=== PATIENT | female | born 1965 | race African-American/Black ===

== ENCOUNTER 2022-04-28 08:19 | Outpatient (CLI) | payer OTHER, SELFPAY ==
--- NOTE | ~2022-04-28 | MR_ITS ---
MRI of the left knee Clinical history: Pain Technique: Coronal proton density and proton density-weighted images, sagittal proton-density and T2 fat-sat images, and axial proton-density fat-saturated images were acquired. Findings: Anterior and posterior cruciate ligaments are intact. Medial collateral ligament and the la teral collateral ligament complex are intact. Popliteus tendon is intact. There is complex tearing of the anterior horn of the lateral meniscus, which is largely essentially c ompletely absent. There is intrasubstance degenerative signal of the posterior horn of the medial men iscus, without definite tear. There is mild diffuse chondral thinning in the medial compartment. There is focal high-grade chondrom alacia at the central aspect of the lateral tibial plateau. Patellofemoral compartment articular cart ilage is well preserved. There is mild amorphous bone marrow edema in the lateral tibial plateau jesse on, nonspecific. Extensor mechanism is intact. Large joint effusion is present, with large Haynes's cyst. There is soft tissue edema surrounding the MCL. Impression: Complex tearing of the anterior horn of the lateral meniscus, which is largely absent. Amorphous marrow edema of the lateral tibial plateau with overlying area of grade IV chondromalacia. Marrow edema likely represents stress response/reactive marrow edema. No definite insufficiency fract ure evident at this time. Soft tissue edema about the MCL is likely reactive. Correlate for acute grade 1 MCL sprain. Large joint effusion with large Haynes's cyst. Reviewed, dictated and finalized at [facility]. [employer] Impression: Complex tearing of the anterior horn of the lateral meniscus, which is largely absent. Amorphous marrow edema of the lateral tibial plateau with overlying area of gra de IV chondromalacia. Marrow edema likely represents stress response/reactive m arrow edema. No definite insufficiency fracture evident at this time. Soft tissue edema about the MCL is likely reactive. Correlate for acute grade 1 MCL sprain. Large joint effusion with large Haynes's cyst.
== END 2022-04-28 08:20 | disposition home or self-care (01) ==
PROVIDERS: Visit Provider Physician Assistant
DX: S83.272A Complex tear of lateral meniscus, current injury, left knee, initial encounter (principal); X58.XXXA Exposure to other specified factors, initial encounter; M71.22 Synovial cyst of popliteal space [Baker], left knee; M25.462 Effusion, left knee
CPT/HCPCS: 73721